=== PATIENT | male | born 1980 | race Caucasian/White ===

== ENCOUNTER 2023-11-08 05:23 | Inpatient (IN) | payer OTHER ==
[~2023-11-08] VITALS: Ht 182.9 cm; Wt 161.0 kg
[2023-11-08] MEDS ORDERED: IPRATROPIUM BROMIDE (0.02%) 0.5MG/2.5ML NEB HHN STA (06:14)
[2023-11-08] MEDS: CEFTRIAXONE 1GM/50ML 50 ML IV ONE (06:26)
[2023-11-08] MEDS: SODIUM CHLORIDE 0.9% 250 ML IV ONE (06:27)
[2023-11-08 06:30] VITALS: PULSE 125; RESP 22; O2SAT 96
[2023-11-08] MEDS: IPRATROPIUM BROMIDE (0.02%) 0.5MG/2.5ML NEB HHN STA (06:30)
[2023-11-08] MEDS: ALBUTEROL (0.083%) 2.5MG/3ML NEB HHN STA (06:30)
[2023-11-08 06:43] LABS: BASOPHILS % 0.2 % (0.0-2.0); DIFFERENTIAL COMMENT 0; EOSINOPHILS % 0.4 % (0.0-5.0); HEMATOCRIT. 38.8 % (42.0-52.0); HEMOGLOBIN. 12.3 g/dL (14.0-18.0); LYMPHOCYTES % 7.2 % (20.0-50.0); MEAN CORPUSCULAR HEMOGLOBIN 23.9 pg (28.0-32.0); MEAN CORPUSCULAR HGB CONC 31.6 g/dL (31.0-37.0); MEAN CORPUSCULAR VOLUME 75.5 fL (80.0-94.0); MEAN PLATELET VOLUME 8.9 fl (7.4-10.4); MONOCYTES % 7.8 % (2.0-8.0); NEUTROPHILS % 84.4 % (40.0-76.0); PLATELET 286 x1000/uL (130-400); RED BLOOD CELL COUNT 5.14 mill/uL (4.7-6.1); RED CELL DISTRIBUTION WIDTH 16.3 % (11.6-14.6); WHITE BLOOD COUNT 13.8 x1000/uL (4.5-11.0)
[2023-11-08 06:48] LABS: CHLORIDE 106 mEq/L (98-107); POTASSIUM 3.9 mEq/L (3.5-5.1); SODIUM 136 mEq/L (136-145)
[2023-11-08 06:49] LABS: CARBON DIOXIDE 25 mEq/L (21-32)
[2023-11-08 06:50] LABS: CALCIUM 8.9 mg/dL (8.7-10.4)
[2023-11-08 06:54] LABS: GLUCOSE 97 mg/dL (70-105)
[2023-11-08 06:55] LABS: INR 0.9; PROTHROMBIN TIME 10.3 sec (9.6-11.0); TROPONIN I HIGH SENSITIVITY 19 ng/L (3.0-53); UREA NITROGEN BLOOD 17 mg/dL (9-23)
[2023-11-08 06:56] LABS: ALANINE AMINOTRANSFERASE 16 IU/L (10-49); ALBUMIN 3.8 g/dL (3.2-4.8); ASPARTATE AMINOTRANSFERASE 14 IU/L (<34)
[2023-11-08 06:57] LABS: BILIRUBIN TOTAL 0.5 mg/dL (0.1-1.0); PROTEIN TOTAL 7.3 g/dL (6.0-8.3)
[2023-11-08] MEDS: AZITHROMYCIN 500MG/250ML 250 ML IV ONE (06:57)
[2023-11-08 07:12] LABS: CLARITY URINE CLEAR (CLEAR); COLOR URINE YELLOW (YELLOW); GLUCOSE URINE 3+ (NEGATIVE); KETONES URINE NEGATIVE (NEGATIVE); LEUKOCYTE ESTERASE URINE NEGATIVE (NEGATIVE); NITRITE URINE NEGATIVE (NEGATIVE); OCCULT BLOOD URINE NEGATIVE (NEGATIVE); PROTEIN URINE NEGATIVE (NEGATIVE); SPECIFIC GRAVITY URINE 1.031 (1.005-1.030); UROBILINOGEN URINE 0.2 E.U./dL (0.2-1.0)
[2023-11-08 08:17] LABS: SQUAMOUS EPITHELIAL CELL URINE FEW /lpf (RARE/1+)
[2023-11-08 08:18] LABS: BACTERIA URINE TRACE; RBC URINE NONE SEEN /hpf (0-2); WBC URINE 0-2 /hpf (0-2)
[2023-11-08] MEDS: SODIUM CHLORIDE 0.9% 1000ML BAG (SEPSIS BOLUS) IV ONE (08:30)
[2023-11-08 11:36] LABS: *AMPHETAMINES SCREEN URINE NEGATIVE (NEGATIVE); *BARBITURATES SCREEN URINE NEGATIVE (NEGATIVE); *BENZODIAZEPINES SCREEN URINE NEGATIVE (NEGATIVE); *COCAINE SCREEN URINE NEGATIVE (NEGATIVE); CANNABINOID URINE SCREEN NEGATIVE (NEGATIVE); ECSTASY MDMA SCREEN URINE NEGATIVE (NEGATIVE); METHADONE URINE SCREEN NEGATIVE (NEGATIVE); OPIATES URINE SCREEN NEGATIVE (NEGATIVE); PHENCYCLIDINE URINE SCREEN NEGATIVE (NEGATIVE)
[2023-11-08] MEDS ORDERED: IOHEXOL-350 100 ML BOTTLE ONE (11:42)
[2023-11-08] MEDS ORDERED: ACETAMINOPHEN 325MG TABLET PO PRN ×2 (12:45)
[2023-11-08] MEDS ORDERED: DOCUSATE SODIUM 100MG CAPSULE PO PRN (12:45)
[2023-11-08] MEDS ORDERED: IPRATROPIUM/ALBUTEROL 0.5-3(2.5)MG/3ML NEB HHN PRN (12:45)
[2023-11-08] MEDS ORDERED: CLONIDINE 0.1MG TABLET PO PRN (12:45)
[2023-11-08] MEDS ORDERED: ONDANSETRON HCL 4MG/2ML INJ IV PRN (12:45)
[2023-11-08] MEDS: FUROSEMIDE 40MG/4ML VIAL IVP SCH (14:02)
[2023-11-08] MEDS: ASPIRIN 81MG TABLET PO SCH (14:02)
[2023-11-08] MEDS: DILTIAZEM HCL 30MG TABLET PO SCH (14:07)
[2023-11-08 15:17] LABS: LACTIC ACID 2.5 mmol/L (0.4-2.0)
[2023-11-08 15:44] LABS: BG BASE EXCESS -2.1 mmol/L (-2.0-2.0); BG CARBOXYHEMOGLOBIN 0.7 % (0.5-1.5); BG DEOXYHEMOGLOBIN 4.8 % (0.0-5.0); BG FRACTION INSPIRED OXYGEN 21; BG HCO3 ACT 20.8 mmol/L (22.0-26.0); BG METHEMOGLOBIN 0.1 % (0.0-1.5); BG OXYGEN SATURATION 95.2 % (92.0-98.5); BG OXYHEMOGLOBIN 94.4 % (94.0-97.0); BG PCO2 30.3 mmHg (35.0-45.0); BG PH 7.454 (7.350-7.450); BG PO2 73.1 mmHg (75.0-100.0); BG SAMPLE SITE RIGHT RADIAL; BG TOTAL HEMOGLOBIN 12.9 g/dL (12.0-18.0); BG VENT MODE ROOM AIR
[2023-11-08 16:00] VITALS: BP 98/65; PULSE 65; RESP 18; TEMP 97.7
[2023-11-08 17:50] VITALS: BP 138/65; PULSE 104; RESP 18; TEMP 98
[2023-11-08] MEDS ORDERED: FURO20TA4 MT (19:25)
[2023-11-08] MEDS ORDERED: EMPA25TA MT (19:25)
[2023-11-08] MEDS ORDERED: SPIR25TA6 MT (19:25)
[2023-11-08] MEDS ORDERED: BISO5TAB13 MT (19:25)
[2023-11-08] MEDS ORDERED: LOSA50TA41 MT (19:25)
[2023-11-08 20:00] VITALS: BP 109/57; PULSE 89; RESP 20; TEMP 98.7
[2023-11-08 21:09] VITALS: PULSE 95; RESP 20; O2SAT 94
[2023-11-08] MEDS: IPRATROPIUM/ALBUTEROL 0.5-3(2.5)MG/3ML NEB HHN SCH (21:09)
[2023-11-08] MEDS: GUAIFENESIN 600MG ER TABLET PO SCH (22:33)
[2023-11-09] VITALS (9 sets, daily range): BP systolic 95–136; BP diastolic 53–86; PULSE 86–115; RESP 20; TEMP 97.6–98.4; O2SAT 95–96
[2023-11-09] MEDS: NYSTATIN POWDER 15GM TOP SCH (13:57)
[2023-11-09] MEDS ORDERED: CEFTRIAXONE 1GM/50ML 50 ML IV SCH (22:00)
[2023-11-09] MEDS ORDERED: VANCOMYCIN 2,000 MG in DEXT 5% WATER 500 ML IV SCH (23:00)
[2023-11-10] MEDS ORDERED: VANCOMYCIN 1.25GM PMX (XELLIA) 250 ML IV SCH (06:00)
== END 2023-11-09 20:35 | disposition short-term general hospital (02) | DRG 872 ==
LOC: ER 05:23 → 5WST 08:50 → EDBEDREQ 08:51 → EDBEDREQTM 08:51 → 5WST 15:14 → 7WST 16:32
PROVIDERS: ADMIT Internal Medicine; ATTEND Internal Medicine
DX: A41.9 Sepsis, unspecified organism (principal); L03.116 Cellulitis of left lower limb; E87.20 Acidosis, unspecified; I50.42 Chronic combined systolic (congestive) and diastolic (congestive) heart failure; I42.8 Other cardiomyopathies; Z68.42 Body mass index [BMI] 45.0-49.9, adult; B35.3 Tinea pedis; Z20.822 Contact with and (suspected) exposure to COVID-19; B35.1 Tinea unguium; E11.621 Type 2 diabetes mellitus with foot ulcer; E66.9 Obesity, unspecified; L97.519 Non-pressure chronic ulcer of other part of right foot with unspecified severity; F41.9 Anxiety disorder, unspecified; J45.909 Unspecified asthma, uncomplicated; R06.03 Acute respiratory distress; Z79.899 Other long term (current) drug therapy
CPT/HCPCS: 36415; 36600; 71045; 71275; 80053; 80305; 81003; 82375; 82805; 83036; 83605; 83880; 84145; 84484; 85025; 87070; 87426; 87804; 93005; 93970; 94640; 99285; J0456; J0696; J1940; J3370; J7030; J7060; Q9967